=== PATIENT | female | born 1980 | race Caucasian/White ===

== ENCOUNTER 2017-03-21 16:24 | Outpatient (CLI) | payer OTHER ==
[~2017-03-21] VITALS: Ht 162.6 cm; Wt 50.5 kg
[2017-03-21 16:26] VITALS: BP 112/75; PULSE 112; RESP 16; Ht 162.6 cm; Wt 50.5 kg
--- NOTE | 2017-03-21 16:29 | PN ---
Date/Time of Note Date/Time of Note DATE: 03/21/17 TIME: 16:25 Outpatient Progress Note Chief Complaint UTI/hydronephrosis/left-sided abdominal pain HPI UTI/no frequency urgency, no burning, patient was treated 2 days with the Zosyn, Hydronephrosis/patient is a hydronephrosis, patient had left-sided hydronephrosis, no fever chill, no back pain, patient not on any antibiotic, Left-sided abdominal pain/patient was recently hospitalized with a left-sided abdominal pain, and patient signed out AMA, patient not taking antibiotic, patient did have a kidney stone, Review of Systems Const: No Fever, no chills, no Wt. loss, no Fatigue, normal appetite, no diaphoresis. Eyes: No pain, no discharge, no redness, no visual change, no foreign body. ENT: No pain, no bleeding, no congestion, no sore throat, no dysphagia, no discharge or rhinitis. Lymph: No adenopathy, no tender nodes, no lymphedema. Resp: No SOB, no cough, no sputum, no wheezing, no chest pain. CV: No chest pain, no palpitaions, no WONG, no PND, no edema. GI: Normal appetite, no pain, no nausea, no vomiting, no diarrhea, no blood, no constipation. : No frequency, no urgency, no dysuria, no hematuria, no flank pain, no discharge, no bleeding. Musc: No bone/joint pain, no back pain, no neck pain, no knee pain, no restricted ROM. Skin: No rash, no skin lesions, no erythema, no laceration, no bruising, no pruritus. Neuro: No AMAYA, no dizziness, no syncope, no seizure, no focal-weakness. Endo: No polyuria, no polydypsia, no dry-skin, no temp-intolerance. Psych: No hallucinations, no depression, no anxiety, no suicidal ideation. Ext: No edema, no pain, no ulcer, no weakness. Physical Exam General Appearance: A 36 year-old [female who appears well-developed, well- nourished, in no acute distress. HEENT: Head normocephalic, atraumatic. Pupils equal, round, reactive to light and accommodate. Sclerae are no jaundice. Nasal turbinates pink without erythema or nasal discharge. Mucous membranes pink and moist without lesions. Oropharynx clear without any exudate or discharge. NECK: Supple. Trachea midline, No thyromegaly, No cervical lymphadenopathy, No mass, No carotid bruits, No JVD, Carotid pulses 2+ bilaterally. PULMONARY: Clear to auscultaion bilaterally, No retractions, Chest expansion symmetric bilaterally, no rales, no ronchi, no dulness on percussion. CARDIAC: Normal SI and S2, Regular rate and rythm, no murmur, gallop, or rub. GASTROINTESTINAL: Abdomen is soft, non-tender, Non Rigid, No distention, Positive bowel sounds x4 quadrants, Liver normal. SKIN: Warm, dry, no rash, no bruise, no echmosis. EXTREMITIES: Bilateral lower extremities normal, no edema, no phlabitus, pulse palpable, no contracture. MUSCULOSKELETAL: Spine Normal, Non-tender, Normal range of motion, No swelling, no deformity, no clubbing, or cyanosis, the patient has no edema to bilateral lower extremities, dorsalis pedis pulses palpable bilaterally. NEUROLOGIC: The patient is awake, alert, oriented, responding to yes/no questions appropriately, moving all extremities, cranial nerve intact, normal strenght, normal power, normal coordination, normal gait. PMH UTI/hydronephrosis left-sided abdominal pain/kidney stone left side Hyponatremia Social Hx Patient smokes 15 cigarettes a day, no drinking, patient used to take drugs, Family Hx Father used to have kidney stone, Assessment/Plan Impression UTI Hydronephrosis Left-sided abdominal pain resolved Kidney stone Plan Patient medical record reviewed from [place], Patient sign out AMA, without any medication, discussed with the patient, Patient education done, Patient encouraged to follow with the primary care physician Because of hydronephrosis and history of kidney stone will give her nitrofurantoin 100 mg twice daily for 1 week, follow with the physician in few days, RUMA ODONNELL MD Mar 21, 2017 16:29
== END 2017-03-21 17:00 | disposition home or self-care (01) ==
LOC: DCC 16:24
PROVIDERS: ATTEND Internal Medicine
DX: N39.0 Urinary tract infection, site not specified (principal); R10.9 Unspecified abdominal pain; N20.0 Calculus of kidney; N13.30 Unspecified hydronephrosis